=== PATIENT | female | born 1960 | race Caucasian/White ===

== ENCOUNTER → 2020-09-26 11:09 | Outpatient (CLI) | payer OTHER, SELFPAY ==
--- NOTE | ~2020-09-26 | DEXA_ITS ---
Bone Density Report Name: Mony Maloney Age: 60 Sex: Female Ethnicity: White Date of : 1960 Indication: postmenopausal; screening for osteoporosis; height loss; Referring Provider: Iza Phan Study: Bone densitometry was performed. Exam Date: September 26, 2020 Accession number: [id number] Bone Density: Region BMD T-score Z-score Classification AP Spine (L1-L4) 0.820 -2.1 -0.5 Osteopenia Femoral Neck (Left) 0.642 -1.9 -0.5 Osteopenia Total Hip (Left) 0.848 -0.8 0.3 Normal Femoral Neck (Right) 0.619 -2.1 -0.7 Osteopenia Total Hip (Right) 0.827 -0.9 0.1 Normal Total Hip Mean 0.838 -0.9 0.2 Normal World Health Organization criteria for BMD impression classify patients as: Normal (T-score at or above -1.0), Osteopenia (T-score between -1.0 and -2.5), or Osteoporosis (T-score at or below -2.5). 10-year Fracture Risk(1): Major Osteoporotic Fracture 9.6% Hip Fracture 1.3% Reported Risk Factors: [place] (), Neck BMD=0.619, BMI=31.1 (1) FRAX(R) Version 3.08. Fracture probability calculated for an untreated patient. Fracture probability may be lower if the patient has received treatment. Clinical Information Provided by Patient: Has used the following medications: Vitamin D, Calcium Patient maximum height was 65.5 Menopause Age: 49 No regular weight bearing exercise Does not regularly consume dairy products Drinks caffeinated beverages Onset of menses at age 11 Number of children 2 Impression: The patient has low bone mass, based on the Total Spine T-score. The patient has an estimated ten-year risk of hip fracture of 1.3% and an estimated ten-year risk of major fracture of 9.6%, based on the WHO FRAX algorithm. Discussion: BONE DENSITY IS LOW AT ONE OR MORE SKELETAL SITES. This patient's lowest T-score is low at one or more skeletal sites. It meets the World Health Organization's (WHO) criteria for ?low bone mass? (T-score between -1.0 and -2.5). The patient's 10-year risk of fracture as calculated by FRAX is less than the threshold where pharmacological therapy is recommended by the National Osteoporosis Foundation (NOF). However, all treatment decisions require clinical judgment and consideration of individual patient factors, including patient preferences, comorbidities, previous drug use, risk factors not captured in the FRAX model (e.g., frailty, falls, vitamin D deficiency, increased bone turnover, interval significant decline in bone density) and possible under or overestimation of fracture risk by FRAX. The patient should follow a healthful lifestyle (good nutrition with adequate calcium and vitamin D, and appropriate weight-bearing exercise). Follow-Up: Consider repeating this study in 2 to 3 years to reassess this patient's status, or sooner if there is some new clinical
== END ==
PROVIDERS: PCP Family Medicine; Visit Provider Family Medicine
DX: Z78.0 Asymptomatic menopausal state (principal); M85.88 Other specified disorders of bone density and structure, other site; M85.852 Other specified disorders of bone density and structure, left thigh; M85.851 Other specified disorders of bone density and structure, right thigh
CPT/HCPCS: 77080

== ENCOUNTER 2020-12-30 03:03 | Day surgery (SDC) | payer OTHER, SELFPAY ==
[2020-12-30 08:09] VITALS: BP 146/90; PULSE 55; RESP 16; TEMP 36.2; O2SAT 98; BMI 29.3
[2020-12-30] MEDS: LACTATED RINGERS 1,000 ML 150 ML IV CONT (08:21)
--- NOTE | 2020-12-30 08:36 | WPDANESEPPF ---
Anes - Initial Pre Proc Eval Procedure: Operation Date: 12/30/20 09:00 Proposed Procedures p Screening Colonoscopy - Eliezer Kolb MD Date/Time: 12/30/20 08:36 Surgeon: Eliezer Kolb MD Pre Op Diagnosis: neoplasm screening Patient Data Age: 60 Gender: F Height: 1.65 m Weight: 80 kg Last Vital Signs Temp 97.1 F L 12/30/20 08:09 Pulse 55 L 12/30/20 08:09 Resp 16 12/30/20 08:09 BP 146/90 H 12/30/20 08:09 Pulse Ox 98 12/30/20 08:09 Allergies Allergy/AdvReac Type Severity Reaction Status Date / Time codeine Allergy Unknown Nausea Verified 12/30/20 08:08 lisinopril Allergy Unknown cough and Verified 12/30/20 08:08 swelling Home Medications Medication Instructions Recorded Confirmed Type amlodipine 5 mg tablet 5 mg PO DAILY 05/23/20 12/30/20 History atorvastatin 40 mg tablet 40 mg PO DAILY 11/15/20 12/30/20 History trazodone 50 mg tablet 50 mg PO QHS PRN #60 tablet 11/15/20 12/30/20 Rx atenolol 50 mg tablet 50 mg PO DAILY #90 tablet 11/18/20 12/30/20 Rx atorvastatin 20 mg PO DAILY 12/20/20 12/30/20 History ezetimibe 10 mg PO DAILY 12/20/20 12/30/20 History hydrochlorothiazide 12.5 mg PO DAILY 12/20/20 12/30/20 History Patient hx anesthesia problems: none Family hx anesthesia problems: none Results Review: All pre-operative results and documents have been reviewed as part of the pre-operative evaluation. [facility] Past Medical History Medical History (Updated 12/30/20 @ 08:35 by Christopher Sofia MD) Essential (primary) hypertension Hyperlipidemia Thoracic aortic aneurysm Family History Family History Father Hypertension Family history of elevated blood lipids Acute myocardial infarction Family history of coronary artery disease Sibling Family history of aortic aneurysm Mother Family history of malignant neoplasm of breast in first degree relative Family history of malignant neoplasm of ovary Social History Social History Smoking packs per day: 1 Smoking cigarettes per day: 20.0 Years smoked: 30 Smoking pack-years: 30.00 Tobacco type: cigarettes Alcohol intake: current Drinks per week: 8 Alcohol use details: 2-3 drinks, 2-3 times weekly Substance use: never Substance use type: does not use Living arrangements: with family Additional living arrangements comments: lives with spouse Spiritual care concerns: No Anes - Eval Final PreProcedure Day of Procedure 12/30/20 08:36 Patient weight: overweight Heart: regular rate and rhythm Lungs: clear to auscultation Airway: Mallampati scale class II Neurological: alert and oriented Last oral intake: >/= 8 hours ASA classification: III Emergent: no Anesthetic plan: proceed Anesthesia type and monitoring: general GIVS and standard monitoring Results Review: All pre-operative results and documents have been reviewed as part of the pre-operative evaluation. Informed Consent: The patient's anesthetic plan and its attendant risks and benefits were discussed with the patient/family/POA. Questions were solicited and answers provided to the satisfaction of the patient/family/POA.
--- NOTE | 2020-12-30 08:40 | PM.HPGS ---
History of Present Illness History of Present Illness Consent: Risks, benefits, and alternatives have been discussed and questions answered. Patient agrees to proceed with procedure. Chief complaint: neoplasm screening Narrative: Mony Maloney is a 60 year old female with last colonoscopy 2010 Review of Systems Constitutional: Constitutional: Denies headache(s) and Denies weakness Eyes: Eyes: Denies blurry vision ENT: Reports Normal hearing present, Denies headache(s) and Denies neck pain Cardiovascular: Cardiovascular: Denies chest pain and Denies dyspnea Respiratory: Respiratory: Denies dyspnea Gastrointestinal: Gastrointestinal: Reports no additional gastrointestinal complaints Genitourinary: Genitourinary: Denies dysuria Musculoskeletal: Musculoskeletal: Denies neck pain Integumentary/Breasts: Skin/Breast: Denies dry skin Neurologic: Reports Normal hearing present, Denies headache(s) and Denies weakness Psychiatric: Psychiatric: Denies anxiety Endocrine: Endocrine: Denies change in body appearance Hematologic/Lymphatic: Hematologic/Lymphatic: Denies easy bleeding Allergic/Immunologic: Allergic/Immunologic: Denies urticaria [facility] Past Medical History Medical History (Updated 12/30/20 @ 08:40 by Eliezer Kolb MD) Colon cancer screening Essential (primary) hypertension Hyperlipidemia Thoracic aortic aneurysm Family History Family History Father Hypertension Family history of elevated blood lipids Acute myocardial infarction Family history of coronary artery disease Sibling Family history of aortic aneurysm Mother Family history of malignant neoplasm of breast in first degree relative Family history of malignant neoplasm of ovary Social History Social History Smoking packs per day: 1 Smoking cigarettes per day: 20.0 Years smoked: 30 Smoking pack-years: 30.00 Tobacco type: cigarettes Alcohol intake: current Drinks per week: 8 Alcohol use details: 2-3 drinks, 2-3 times weekly Substance use: never Substance use type: does not use Living arrangements: with family Additional living arrangements comments: lives with spouse Spiritual care concerns: No Meds Home Medications and Allergies Home Medications Medication Instructions Recorded Confirmed Type amlodipine 5 mg tablet 5 mg PO DAILY 05/23/20 12/30/20 History atorvastatin 40 mg tablet 40 mg PO DAILY 11/15/20 12/30/20 History trazodone 50 mg tablet 50 mg PO QHS PRN #60 tablet 11/15/20 12/30/20 Rx atenolol 50 mg tablet 50 mg PO DAILY #90 tablet 11/18/20 12/30/20 Rx atorvastatin 20 mg PO DAILY 12/20/20 12/30/20 History ezetimibe 10 mg PO DAILY 12/20/20 12/30/20 History hydrochlorothiazide 12.5 mg PO DAILY 12/20/20 12/30/20 History Allergies Allergy/AdvReac Type Severity Reaction Status Date / Time codeine Allergy Unknown Nausea Verified 12/30/20 08:08 lisinopril Allergy Unknown cough and Verified 12/30/20 08:08 swelling Vital Signs Vital Signs - 24 hr 12/30/20 08:09 Temperature 97.1 F L Pulse Rate 55 L Respiratory Rate 16 Blood Pressure 146/90 H Pulse Oximetry 98 Exam Const: General: comfortable and no acute distress HENMT: General nose exam: Normal nares present Eyes: General: appearance normal, both eyes and all related structures Neck: Neck: no JVD Resp: Auscultation: clear to auscultation bilaterally Cardio: Rate: regular rate Rhythm: regular rhythm GI: Inspection: non-distended GI Palp: Yes Soft to palpation Skin: General skin exam: normal color Neuro: General: gait normal Speech: normal speech Extrem: General: normal to inspection Psych: Mental Status: mental status grossly normal Assessment and Plan Assessment and plan (1) Colon cancer screening: Code(s): Z12.11 - Encounter for screening for malignant neop
[2020-12-30 09:02] VITALS: BP 94/50; PULSE 56; RESP 16; O2SAT 98
[2020-12-30 09:12] VITALS: BP 116/79; PULSE 48; RESP 16; O2SAT 99
[2020-12-30 09:21] VITALS: BP 130/79; PULSE 50; RESP 16; O2SAT 99
== END 2020-12-30 09:32 | disposition home or self-care (01) ==
PROVIDERS: PCP Family Medicine; Visit Provider Internal Medicine Gastroenterology
PROC: 0DJD8ZZ Inspection of Lower Intestinal Tract, Via Natural or Artificial Opening Endoscopic (ICD-10-PCS; CPT 45378; principal; 2020-12-30 09:00)
DX: Z12.11 Encounter for screening for malignant neoplasm of colon (principal); K57.30 Diverticulosis of large intestine without perforation or abscess without bleeding; K64.8 Other hemorrhoids; I10 Essential (primary) hypertension; E78.5 Hyperlipidemia, unspecified; I71.2 Thoracic aortic aneurysm, without rupture; F17.210 Nicotine dependence, cigarettes, uncomplicated
CPT/HCPCS: 45378; J2704; J7120

== ENCOUNTER 2024-04-23 13:23 | Outpatient (CLI) | payer MEDICARE, SELFPAY ==
--- NOTE | ~2024-04-23 | DEXA_ITS ---
Bone Density Report Name: HAYDEN RAMOS Age: 64 Sex: Female Ethnicity: White Date of : 1960 Indication: postmenopausal; screening for osteoporosis; Referring Provider: CLARK FIERRO Study: Bone densitometry was performed. Exam Date: April 23, 2024 Accession number: [id number] Bone Density: Region BMD T-score Z-score Classification AP Spine(L1-L4) 0.807 -2.2 -0.4 Osteopenia Femoral Neck (Left) 0.626 -2.0 -0.5 Osteopenia Total Hip (Left) 0.830 -0.9 0.3 Normal Femoral Neck (Right) 0.597 -2.3 -0.8 Osteopenia Total Hip (Right) 0.786 -1.3 -0.1 Osteopenia Total Hip Mean 0.808 -1.1 0.1 Osteopenia World Health Organization criteria for BMD impression classify patients as: Normal (T-score at or above -1.0), Osteopenia (T-score between -1.0 and -2.5), or Osteoporosis (T-score at or below -2.5). 10-year Fracture Risk(1): Major Osteoporotic Fracture 11% Hip Fracture 2.0% Reported Risk Factors: [place] (), Neck BMD=0.597, BMI=29.4 (1) FRAX(R) Version 3.08. Fracture probability calculated for an untreated patient. Fracture probability may be lower if the patient has received treatment. Clinical Information Provided by Patient: Has used the following medications: Vitamin D, Calcium Patient maximum height was 66 Menopause Age: 44 Does not regularly consume dairy products Drinks caffeinated beverages Onset of menses at age 11 Number of children 2 Impression: The patient has low bone mass, based on the Right Femoral Neck T-score. The patient has an estimated ten-year risk of hip fracture of 2% and an estimated ten-year risk of major fracture of 11%, based on the WHO FRAX algorithm. Discussion: BONE DENSITY IS LOW AT ONE OR MORE SKELETAL SITES. This patient's lowest T-score is low at one or more skeletal sites. It meets the World Health Organization's (WHO) criteria for ?low bone mass? (T-score between -1.0 and -2.5). The patient's 10-year risk of fracture as calculated by FRAX is less than the threshold where pharmacological therapy is recommended by the National Osteoporosis Foundation (NOF). However, all treatment decisions require clinical judgment and consideration of individual patient factors, including patient preferences, comorbidities, previous drug use, risk factors not captured in the FRAX model (e.g., frailty, falls, vitamin D deficiency, increased bone turnover, interval significant decline in bone density) and possible under or overestimation of fracture risk by FRAX. The patient should follow a healthful lifestyle (good nutrition with adequate calcium and vitamin D, and appropriate weight-bearing exercise). Follow-Up: Consider repeating this study in 2 to 3 years to reassess this patient's status, or sooner if there is some new clinical indication. Reported by: WERNER on 04/23/2024 1:52:00 PM. Reviewed, dictated and finalized at location [facility]
--- OUTSIDE RECORDS SUMMARY | 2024-04-23 13:30 | XMS_ITS | Encounter Summary ---
Author Organization [facility] Address [address] [place] [address] Care Team Providers Care Assembler [employer] Name Role Phone Unavailable Primary Care Provider Unavailabl e Encounter Details Date Type Department Care Team (Late st Contact Info) Description 06/18/2023 Lab Requisition [facility] [address] [place] [address] Ailyn Ortega DO [address] [facility] [address] [place] [address] Social History Tobacco Use Types Packs/Day Years Used Date Smoking Tobacco: Never Assessed Sex and Gender Information Value Date Recorded Sex Assigned at Not on file Gender Identity Not on file Sexual Orientation Not on file documented as of this encounter Plan of Treatment Not on file documented as of this encounter Procedures Procedure Name Priority Date/Time Associated Diagnosis Comments DERMATOPATHOLOGY Routine 06/18/2023 2:26 PM CDT documented in this encounter Results * DERMATOPATHOLOGY (06/18/2023 2:26 PM CDT) Case Report Dermatopathology Report Case: [id number] Authorizing Provider: Ailyn Ortega DO Collected: 06/18/2023 02:26 PM Ordering Location: [facility] - Received: 06/19/2023 12:37 PM DermPath Lab Pathologist: Ivone Alcantar MD Specimen: Skin, left anterior leg 1:07 PM CDT DERMATOPATHOLOGY LABORATORY Final Diagnosis Specimen A. SKIN, left anterior leg: LICHEN PLANUS-LIKE KERATOSIS (BENIGN LICHENOID KERATOSIS) (L82.1) 1:07 PM CDT DERMATOPATHOLOGY LABORATORY Clinical History R/o NMSC 04/11/202 4 1:07 PM CDT DERMATOPATHOLOGY LABORATORY Gross Description Specimen A: Received is one formalin filled container labeled with the patient's name and designated left anterior leg. The specimen consists of a shave biopsy measuring 8x5x1 mm. Jar 0. 1:07 PM CDT DERMATOPATHOLOGY LABORATORY Microscopic Description Specimen A. SKIN, left anterior leg: The epidermis is mildly acanthotic. There is a lichenoid infiltrate with vacuolar changes of basilar keratinocytes and scattered necrotic keratinocytes. 1:07 PM CDT DERMATOPATHOLOGY LABORATORY Disclaimer An external and internal positive and negative controls are appropriate for the histochemical, immunohistochemical and immunofluorescence stain(s) in this case (if any), except where stated explicitly. The performance characteristics of the stain(s) cited in this report were developed and its performance characteristic determined by the Dermatopathology Laboratory at [facility], directed by Dr. Ha Reagan. These tests need not be, and therefore are not, approved by the [place] Food and Drug Administration. The tests are used for clinical purposes. Billing Codes Specimen Charges Stain Charges 10020 1 1:07 PM CDT DERMATOPATHOLOGY LABORATORY Embedded Images 1:07 PM CDT DERMATOPATHOLOGY LABORATORY Pathology/Cytolo gy TISSUE SPECIMEN FROM SKIN / Unknown 06/18/2023 2:26 PM CDT 06/19/2023 12:37 PM CDT Ailyn Ortega DO LAB - PATHOLOGY/C YTOLOGY ORDERABLES DERMATOPATHOLOGY LABORATORY [facility] - Department of Dermatology [address], [address] [phone] documented in this encounter Visit Diagnoses Not on filedocumented in this encounter
--- OUTSIDE RECORDS SUMMARY | 2024-04-23 13:31 | XMS_ITS | Encounter Summary ---
Author Organization [facility] Address [address] [place] [address] Phone Care Team Providers Care Credentialer Name Role Phone Iza Phan DO Primary Care Provider [phone] Encounter Details Date Type Department Care Team (Latest Contact Info) Description 11/08/2021 Orders Only [facility] Scanning, Provider Social History Tobacco Use Types Packs/Day Years Used Date Smoking Tobacco: Former Smokeless Tobacco: Never Alcohol Use Standard Drinks/Week Comments Yes 0 (1 standard drink = 0.6 oz pur e alcohol) Comments No Sex and Gender Information Value Date Recorded Sex Assigned at Not on file Legal Sex Female 7:08 AM [employer] Gender Identity Female 05/16/2020 7:57 PM [employer] Sexual Orientation Straight 05/16/2020 7: 57 PM [employer] documented as of this encounter Progress Notes * Yvonne Bishop RN - 11/08/2021 11:59 PM CDT Labs from pcp. Pt seen today. documented in this encounter Plan of Treatment Not on file documented as of this encounter Procedures Procedure Name Priority Date/Time Associated Diagnosis Comments SCAN - LABS 11/08/2021 documented in this encounter Results * SCAN - LABS (11/08/2021) us Provider Scanning Final Result documented in this encounter Visit Diagnoses Not on filedocumented in this encounter Care Teams Credentialer Relationship Specialty Start Date End Date Iza Phan DO PCP - General Family Medicine 02/11/20 documented as of this encounter
--- OUTSIDE RECORDS SUMMARY | 2024-04-23 13:31 | XMS_ITS | Continuity of Care Document ---
Author Organization [facility] Address [address] [place] [address] Phone Care Team Providers Care Catalogue Compiler Name Role Phone Minnie Blackburn MD Unavailable Unavailable Allergies, Adverse Reactions, Alerts Substance Reaction Status Criticality lisinopril Active No Information codeine Active No Information Medications Medication Instructions Dosage Effective Dates (start - stop) Status Comments amoxicillin 875 mg tablet take 1 tablet by oral route every 12 hours 875 MG - Active multivitamin tablet - Active atorvastatin 20 mg tablet take 1 tablet by oral route every day 20 MG - Active atenolol 50 mg tablet take 1 tablet by oral route every day 50 MG - Active CITRACAL-D3 (unknown strength) Not Available - Active hydrochlorothiazide 12.5 mg tablet take 1 tablet by oral route every day 12.5 MG - Active ezetimibe 10 mg tablet take 1 tablet by oral route every day 10 MG - Active Procedures Procedure Date RAPID STREP OFFICE/OUTPATIENT VISIT, NEW OFFICE/OUTPATIENT VISIT, EST OFFICE/OUTPATIENT VISIT, EST OFFICE/OUTPATIENT VISIT, EST OFFICE/OUTPATIENT VISIT, EST OFFICE/OUTPATIENT VISIT, EST Advance Directives Directive Yes / No Effective Date File Name Other Directive No N/A N/A WARNING:The information contained in this section is historical and is provided for information only and does not constitute a legal document or any assurance that the information is still accurate. Please verify the information with the hwang of the legal document before using it for clinical purposes. Encounters Encounter Description Practice Location Reason(s) For Visit Diagnoses Date Provider Providers Copied on Encounter OFFICE/OUTPAT IENT VISIT, [facility], [address] [place] [address], [place], tel: [phone] [place] SORE THROAT (chief complaint) Pain in throatOther acute sinusitis 3 Blackburn Minnie. [address] [place] [address], [place], . tel: [phone] OFFICE/OUTPAT IENT VISIT, [facility], [address] [place] [address], [place], [place] tel: [phone] [place] UTI (chief complaint) DysuriaUrinary frequencyAcute cystitis with hematuria 3 Aren Mathews. [address] [place] [address], [place], [place]. tel: [phone] OFFICE/OUTPAT IENT VISIT, [facility], [address] [place] [address], [place], tel: [phone] [place] Sinus symptoms (acute) (chief complaint) Acute maxillary sinusitis, unspecified [phone] Trung Kiara. [address] [place] [address], [place], . tel: [phone] OFFICE/OUTPAT IENT VISIT, [facility], [address] [place] [address], [place], tel: [phone] [place] Sinus symptoms (acute) (chief complaint) Acute maxillary sinusitis, unspecified 201 9 Blackburn Gulam. [address] [place] [address], [place], . tel: [phone] OFFICE/OUTPAT IENT VISIT, [facility], [address] [place] [address], [place], [place] tel: [phone] [place] Sinus symptoms (acute) (chief complaint) Acute sinus infection 3-201 5 Trung Kiara. [address] [place] [address], [place], . tel: [phone] OFFICE/OUTPAT IENT VISIT, [facility], [address] [place] [address], [address], tel:[phone] [place] Sinus symptoms (acute) (chief complaint) Acute sinus infection 4 Malcom Beaver. [address] [place] [address], [address], . tel: [phone] Family History Family Member Type Diagnosis Age At Onset Mother Problem (finding) malignant neoplasm of o vary Father Problem (finding) alzheimer's disease Father Problem (finding) Heart disease Payers Payer name Insurance type Covered green party ID Authoriza tion(s) No Information Social History Type Description Quantity Date Captured Comments Alcohol Use Details beer Caffeine Use Details coffee Tobacco Use Status No Information Smoking Status Former smoker Non-Smoking Tobacco Use Details : No Details Available : No Details Available Sex Female Vital Signs Date / Time: Height Weight BMI Pulse Rate Blood Pressure Temperature Respiratory Rate Body Surface Area Head Circumference Head Circ. Percentile Wt./[place]. Percentile BMI percentile Pulse Ox Inhaled Ox 10:48 AM 65.00 in 79.651 kg (175.60 lbs) 29.2 2 kg/m eter (2) 65 /min 132/78 mm[Hg] 98.70 F 16 /min 97 % 21 % Chief Complaint And Reason For Visit From encounter dated 02/25/2023 10:30'. SORE THROAT (chief complaint). Description: Onset: 2 Days. The severity of the problem is moderate.The problem has worsened. Symptoms are associated with exposure to strep. Associated symptoms include cough, fatigue, nasal congestion, pharyngitis and postnasal drainage. Pertinent negatives includechills/rigors, dyspnea, facial pain, fever, headache, hemoptysis, myalgia, otalgia, rash, rhinitis,sinus pressure, sputum, tooth pain or wheezing. Additional information: COVID POSITIVE ON THANKSVII. Reason For Referral Reason For Referral No Information Plan Of Treatment Date Type Action Status Goal HPV. Due on due Goal FOBT. Due on due Goal Depression screening. Due on due Goal Mammogram. Due on due Goal Lipid panel. Due on due Goal Pap/HPV testing. Due on due Goal Unhealthy drug u se screening. Due on due Goal Zoster vaccine. Due on due Goal Hepatitis C screening. Due o n due Goal Tdap. Due on due Goal Td vaccine. Due on due Goal Zoster vaccine (). Due on due Goal Colonoscopy. Due on due Goal FIT. Due on due Goal Influenza vaccine. Due on due Goal Sigmoidoscopy. Due on due Goal FIT-DNA. Due on due Goal CT-Colonography. Due on due Goal Tobacco cessation counseling completed Goal Depression screening. Due on due Goal Pap/HPV testing. Due on due Goal FOBT. Due on due Goal Influenza vaccine. Due on due Goal Zoster vaccine. Due on due Goal Colonoscopy. Due on due Goal Lipid panel. Due on due Goal Mammogram. Due on due Goal Td vaccine. Due on due Goal Tdap. Due on due Goal Sigmoidoscopy. Due on due Goal CT-Colonography. Due on due Goal FIT. Due on due Goal FIT-DNA. Due on due Goal Hepatitis C screening. Due o n due Goal HPV. Due on due Goal Unhealthy drug u se screening. Due on due Goal Zoster vaccine (). Due on due Goal FOBT. Due on due Goal Influenza vaccine. Due on due Goal Zoster vaccine. Due on due Goal Colonoscopy. Due on due Goal Lipid panel. Due on 020 due Goal Mammogram. Due on 0 due Goal Td vaccine. Due on 20 due Goal Tdap. Due on due Goal Sigmoidoscopy. Due on due Goal Pap/HPV testing. Due on due Goal Depression screening. Due on due Patient Education Urinary Tract Infection in Women: Care Instructions completed Patient Education Sinusitis: After Your V isit completed History Of Present Illness Encounter Date Complaint History Of Prese nt Illness SORE THROAT Onset: 2 Days. T he severity of the problem is moderate. The problem has worsened. Symptoms are associated with exposure to strep. Associated symptoms include cough, fatigue, nasal congestion, pharyngitis and postnasal drainage. Pertinent negatives include chills/rigors, dyspnea, facial pain, fever, headache, hemoptysis, myalgia, otalgia, rash, rhinitis, sinus pressure, sputum, tooth pain or wheezing. Additional information: COVID POSITIVE ON THANKSGIVIING. Comments: EXPOSE D TO WITH STREP INF UTI Onset: 1 Day. Th e severity of the problem is mild. The problem has worsened. Presenting/Initial symptoms include burning, dysuria, frequency, hematuria and urgency. Symptoms are relieved by OTC analgesics. Comments: (Fabio victor is a 62-year-old female with medical history of hypertension hyperlipidemia presents to the clinic with complaints of dysuria, frequency, and urgency for 1 day. Aggravating factors urination, relieving factors Azo, treatments tried again on ibuprofen. Primary care provider is Iza Rowan. She denies chest pain, shortness of breath, fever, vomiting, flank pain, vaginal discharge, vaginal odor, STI concerns, or any other acute symptoms today. She indicates that generally when she has urinary tract infection her symptoms are similar to this and usually occur quickly.) Sinus symptoms (acute) Onset: 2 Weeks. Pertinent/initial symptoms include facial pain, facial pressure, sinus congestion, sinus pain and sinus pressure. Associated symptoms include cough, nasal drainage and postnasal drainage. Pertinent negatives include fever or tooth pain. Sinus symptoms (acute) (comments ) The patient reports being treated for sinus infection with Doxycycline and Prednisone. She started to feel a little bit better and then worse again. She has been off antibiotics for about 2 days. She denies any fever and has been checking regularly to make sure she does not have a temp. She gets sinus infections a few times a year. She has been taking Mucinex. Sinus symptoms (acute) Onset: 6 Days. The severity of the problem is moderate. The problem has worsened. The symptoms are constant. Symptoms are associated with recurrent sinus infections. Aggravating factors include allergens. Symptoms are relieved by decongestants, nasal saline spray, nasal steroids and OTC analgesics. Associated symptoms include cough, headache, nasal drainage, postnasal drainage, sinus pressure, sore throat, tooth pain and tooth sensitivity. Pertinent negatives include fever. Additional information: bilateral earache. Sinus symptoms (acute) Onset: 4 Days. The severity of the problem is moderate. Both sides are affected. Pertinent/initial symptoms include sinus pain and sinus pressure. Symptoms are associated with tobacco use. Denies aggravating factors. Denies relieving factors. Associated symptoms include cough, headache, postnasal drainage, sinus pressure and sore throat. Pertinent negatives include fever or nasal drainage. Additional information: (Leaving for vacation in a few days and does not want to be out of town and symptoms get worse). Sinus symptoms (acute) Onset: 5 Days. The severity of the problem is moderate. Pain Scale: 6/10. The problem has worsened. The symptoms are constant. Both sides are affected. Pertinent/initial symptoms include facial pain, facial pressure, sinus congestion, sinus pain, sinus pressure and throbbing pain. Symptoms are associated with tobacco use. Associated symptoms include cough, headache, nasal drainage, postnasal drainage and sinus pressure. Pertinent negatives include fever or sore throat. Additional information: has been taking Mucinex for 5 days but is not getting any better. Functional Status Date Functional Assessmen t No Information Instructions Date Instruction Additional Infor alysha FINISH AMOXIL, NARESH NUE SYMPTOMATIC TREATMENTS DIRECTED Related to Other acute sinusitis Take antibiotic as d irected, take all the medication even if improved. Drink plenty of fluids especially water, wipe front to back, avoid douching, empty the bladder before and immediately following sexual intercourse, and avoid tight fitting clothing. Avoid irritants such as scented feminine products, scented pads or tampons, and scented bath soaps. Monitor for worsening signs and symptoms, return to the clinic or present to the emergency room should your condition worsen. Related to Acute cystitis with hematuria Finish all antibiotics as prescr ibed. Related to Acute maxillary sinusitis, unspecified Sinus rinses Related to Acute maxillary sinusitis, unspecified Increase fluids. Rest. Related t o Acute maxillary sinusitis, unspecified Mucinex DM + Sudafed for sinus relief, mucous, and cough Related to Acute maxillary sinusitis, unspecified FINISH ANTIBIOTICS- DIRECTED R elated to Acute maxillary sinusitis, unspecified Finish all antibiotics as prescr ibed. Related to Acute sinus infection Patient instructed o n use of saline sprays. Related to Acute sinus infection Increase fluids. Related to Acut e sinus infection Instructions given f or sinus irrigation. Related to Acute sinus infection RTC if symptoms not better in 1 week Related to Acute sinus infection continue using mucinex Related t o Acute sinus infection antibiotics as discussed Related to Acute sinus infection Patient instructed o n use of saline sprays. Related to Acute sinus infection Assessments Type Assessment Date assessment Pain in throat assessment Other acute sinusitis Mental Status Date Cognitive Assessment Orientation - Elsa ed to time, place, person, situation. Patient Care Teams Name Effective Dates (start - stop) Status Members No Information
--- OUTSIDE RECORDS SUMMARY | 2024-04-23 13:31 | XMS_ITS | Clinical Summary ---
Author Organization [facility] Address [address] [place] [address] Care Team Providers Care Photographic Reproduction Technician Name Role Phone Unavailable Primary Care Provider Unavailabl e Source Comments [facility],non-owned Affiliates and Associated Physician Practices is amultiple site organization consisting of ambulatory clinics and hospital sitesin [place], [place] and [place]. This disclosure is being madepursuant to the Care Everywhere program and may not contain all information available regarding this patient. Last updated 17.[facility] [employer] Social History Tobacco Use Types Packs/Day Years Used Date Smoking Tobacco: Never Assessed Sex and Gender Information Value Date Recorded Sex Assigned at Not on file Gender Identity Not on file Sexual Orientation Not on file Plan of Treatment Health Maintenance Due Date Last Done Comments BONE DENSITY TESTING 1959 COLOGUARD (AGES 45-75) - COL ON CA SCREENING 1959 COLON MONITORING 1959 COLONOSCOPY - COLON CA SCREENING 1959 CT COLONOGRAPHY - COLON CA SCREENING 1959 Colorectal Cancer Screening 1959 FIT - COLON CA SCREENING 1959 FLEX SIG - COLON CA SCREENING 1959 LIPID TESTING 1959 MAMMOGRAM 1959 PAP SMEAR 1959 HIV SCREENING 1974 HEPATITIS C SCREENING 03/09/1977 DTAP/TDAP/TD VACCINES (1 - Tdap) 1978 PNEUMOCOCCAL VACCINE 50+ (1 of 1 - PCV) 2009 ZOSTER VACCINE (1 of 2) 2009 COVID-19 VACCINE ( - 2023-2 5 season) 2023 INFLUENZA VACCINE (#1) 2023 DEPRESSION SCREENING 03/11/2024 Respiratory Syncytial Virus (RSV) Vaccine Pt: or over 60 yrs (1 - 1-dose 75+ series) 2034 HEPATITIS B VACCINE Aged Out No longe r eligible based on patient's age to complete this topic HIB VACCINE Aged Out No longer eligi ble based on patient's age to complete this topic HPV VACCINE Aged Out No longer eligi ble based on patient's age to complete this topic MENINGOCOCCAL (Group B) VACCINE Aged Out No longer eligible based on patient's age to complete this topic MENINGOCOCCAL VACCINE Aged Out No art amelia eligible based on patient's age to complete this topic
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
--- OUTSIDE RECORDS SUMMARY | 2024-04-23 13:31 | XMS_ITS | Clinical Summary ---
Author Organization [facility] Address [address] [place] [address] Phone Care Team Providers Care Plate Put In Worker Name Role Phone Iza Phan DO Primary Care Provider [phone] Allergies Active Allergy Reactions Criticality Noted Date Comments Amlodipine Swelling Medium 07/11/2020 Codeine Nausea only,Vomiting Reaction: Nausea, Vomiting, Lisinopril Swelling Medium 07/11/2020 Medications hydroCHLOROthia zide (MICROZIDE) 12.5 mg capsule TAKE 1 CAPSULE BY MOUTH DAILY 90 capsule 3 11/30/2022 Active atenoloL (TENORMIN) 50 mg tablet TAKE 1 TABLET BY MOUTH DAILY 90 tablet 3 09/25/2023 Active atorvastatin (LIPITOR) 20 mg tablet TAKE 1 TABLET BY MOUTH ONCE DAILY 90 tablet 3 09/25/2023 Active ezetimibe (ZETIA) 10 mg tablet TAKE 1 TABLET BY MOUTH DAILY 90 tablet 3 09/25/2023 Active Active Problems Problem Noted Date Diagnosed Date Aortic dilatation 11/14/2020 Essential hypertension 05/20/2020 Hypercholesterolemia 05/20/2020 Coronary artery calcification 05/20/2020 Resolved Problems Problem Noted Date Diagnosed Date Resolved Date Thoracic aortic aneurysm 05/18/2020 Family History Medical History Relation Name Comments Heart disease Father Heart disease; Breast cancer Mother Cancer, breast ; Ovarian cancer Mother Ovarian cance r; Hypertension Sister Hypertension; Relation Name Status Comments Father Mother Sister Social History Tobacco Use Types Packs/Day Years Used Date Smoking Tobacco: Former Smokeless Tobacco: Never Alcohol Use Standard Drinks/Week Comments Yes 0 (1 standard drink = 0.6 oz pur e alcohol) Personal Safety Answer Date Recorded Getting School Help Needed Not on file 05/24 Comments No Sex and Gender Information Value Date Recorded Sex Assigned at Not on file Legal Sex Female 7:08 AM ENGAGEMENT QUALITY CONSULTANT Gender Identity Female 05/16/2020 7:57 PM ENGAGEMENT QUALITY CONSULTANT Sexual Orientation Straight 05/16/2020 7: 57 PM ENGAGEMENT QUALITY CONSULTANT Obstetrics History Last Filed Vital Signs Vital Sign Reading Time Taken Comments Blood Pressure 130/80 11/21/2022 9:52 AM CDT Pulse 60 11/21/2022 9:52 AM CDT Temperature 36.3 C (97.4 F) 05/20/2020 8:57 AM ENGAGEMENT QUALITY CONSULTANT Respiratory Rate - - Oxygen Saturation 98% 11/21/2022 9:52 AM CDT Inhaled Oxygen Concentration - - Weight 81.3 kg (179 lb 3.2 oz) 11/21/2022 9:52 A M CDT Height 165.1 cm (5' 5 ) 11/21/2022 9:52 AM CDT Body Mass Index 29.82 11/21/2022 9:52 AM CDT Plan of Treatment Health Maintenance Due Date Last Done Comments Breast Cancer Screening-Mammogram 1960 Colon Cancer Screening-Colonoscopy 1960 Depression Screening 1959 Fall Risk Assessment 1960 Hepatitis C Screening 1960 Osteoporosis Screening-Bone Density Scan 1959 DTaP/Tdap/Td Vaccine (1 - Tdap) 1970 Hepatitis B Screening 1977 Cervical Cancer Screening 10/15/20142013, 10/15/2013, 09/30/2012, Additional history exists Zoster Vaccine (2 of 2) 01/01/2020 11/06/2019 Influenza Vaccine (#1) 2023 0, 12/25/2018, 02/24/2018 Pneumococcal vaccine 65+ (1 of 1 - PCV) 2024 Well Visit 65+ 2024 10/02/2016 Procedures Procedure Name Priority Date/Time Associated Diagnosis Comments THINPREP IMAGING PAP AND HPV MRNA E6/E7 REFLEX HPV 16,18/45 Routine 10/15/2013 12:00 AM CDT from Last 3 Months or Most Recently Relevant to Health Maintenance Results * ThinPrep Imaging Pap and HPV mRNA E6/E7 Reflex HPV 16,18/45 (10/15/2013 12:00 AM CDT) Human papillomavirus RNA, High Risk E6/E7 Not Detected Not Detected [facility] HISTORICAL RESULTS Comment: This test was performed using the APTIMA HPV Assay ([employer] This assay detects E6/E7 viral messenger RNA (mRNA) from 14 high-risk HPV types (16,18,31,33,35,39,45,51,52,56,58,59,66,68). Test performed at [facility] [address] Director: ERINN KAY MD 10/15/2013 us Rosales Jordan MD LAB CYTOLOGY ORDERABLES Final Re sult [facility] HISTORICAL RESULTS from Last 3 Months or Most Recently Relevant to Health Maintenance Insurance [facility] CHOICE PLUS Member Subscriber Plan / Payer (Ef fective 2020-Present) Name:Mony Maloney Member ID:Not on file Relation to Subscriber:Not on file Subscriber ID:Not on file Payer ID:[id number] (NAIC) Group ID:Not on file Type:[facility] HMO/PPO Address: [place] [phone] [facility] CHOICE PLUS CHOICE PLUS [facility] CHOICE PLUS Member Subscriber Plan / Payer (Ef fective 2021-Present) Name:Jessica Maloneysly Alvarez Relation to Subscriber:Spouse Name:PARIS MALONEY Date of :1959 (Home) Address: [address] [place] [address] Payer ID:[id number] (NAIC) Type:[facility] HMO/PPO Address: [place] [phone] Care Teams Plate Put In Worker Relationship Specialty Start Date End Date Iza Phan DO PCP - General Family Medicine 02/11/20
--- OUTSIDE RECORDS SUMMARY | 2024-04-23 13:31 | XMS_ITS | Referral Summary ---
Author Organization [facility] Address [address] [facility] [address] Care Team Providers Care Mixed Livestock Farmer Name Role Phone Unavailable Primary Care Provider Unavailabl e Source Comments [facility],non-owned Affiliates and Associated Physician Practices is amultiple site organization consisting of ambulatory clinics and hospital sitesin [place], [place], [place] and [place]. This disclosure is being madepursuant to the Care Everywhere program and may not contain all information available regarding this patient. Last updated 17.[facility] Social History Tobacco Use Types Packs/Day Years Used Date Smoking Tobacco: Never Assessed Sex and Gender Information Value Date Recorded Sex Assigned at Not on file Gender Identity Not on file Sexual Orientation Not on file Plan of Treatment Not on file
--- OUTSIDE RECORDS SUMMARY | 2024-04-23 13:31 | XMS_ITS | Patient Health Summary ---
Author Organization [facility] Address [address] [place] [address] Care Team Providers Care Senior Compliance Analyst Name Role Phone Unavailable Primary Care Provider Unavailabl e Note from [facility],non-owned Affiliates and Associated Physician Practices is amultiple site organization consisting of ambulatory clinics and hospital sitesin [place], [place], [place] and [place]. This disclosure is being madepursuant to the Care Everywhere program and may not contain all information available regarding this patient. Last updated 17.[facility] Social History Tobacco Use Types Packs/Day Years Used Date Smoking Tobacco: Never Assessed Sex and Gender Information Value Date Recorded Sex Assigned at Not on file Gender Identity Not on file Sexual Orientation Not on file Procedures * DERMATOPATHOLOGY(Performed 06/18/2023) * DERMATOPATHOLOGY(Performed 04/18/2022) * DERMATOPATHOLOGY(Performed 02/22/2022) Results * DERMATOPATHOLOGY (06/18/2023 2:26 PM CDT) Only the most recent of3 resultswithin the time period is included. Case Report Dermatopathology Report Case: [id number] Authorizing Provider: Ailyn Ortega DO Collected: 06/18/2023 02:26 PM Ordering Location: [facility] - Received: 06/19/2023 12:37 PM DermPath Lab Pathologist: Ivone Alcantar MD Specimen: Skin, left anterior leg 4 1:07 PM CDT DERMATOPATHOLOGY LABORATORY Final Diagnosis Specimen A. SKIN, left anterior leg: LICHEN PLANUS-LIKE KERATOSIS (BENIGN LICHENOID KERATOSIS) (L82.1) 4 1:07 PM CDT DERMATOPATHOLOGY LABORATORY Clinical History R/o NMSC 1:07 PM CDT DERMATOPATHOLOGY LABORATORY Gross Description [...] characteristic determined by the Dermatopathology Laboratory at [facility], directed by Dr. Ha Reagan. These tests need not be, and therefore are not, approved by the [place] Food and Drug Administration. The tests are used for clinical purposes. Billing Codes Specimen Charges Stain Charges 40875 1 4 1:07 PM CDT DERMATOPATHOLOGY LABORATORY Embedded Images 1:07 PM CDT DERMATOPATHOLOGY LABORATORY Pathology/Cytolo gy TISSUE SPECIMEN FROM SKIN / Unknown 06/18/2023 2:26 PM CDT 06/19/2023 12:37 PM CDT Ailyn Ortega DO LAB - PATHOLOGY/C YTOLOGY ORDERABLES DERMATOPATHOLOGY LABORATORY [facility] - Department of Dermatology [address], [address] [phone]
--- OUTSIDE RECORDS SUMMARY | 2024-04-23 13:31 | XMS_ITS | Referral Summary ---
Author Organization [facility] Address [address] [place] [address] Phone Care Team Providers Care Java Engineer Name Role Phone Iza Phan DO Primary Care Provider [phone]- [phone] Allergies Active Allergy Reactions Criticality Noted Date [...] Date Resolved Date Thoracic aortic aneurysm 05/18/2020 Social History Tobacco Use Types Packs/Day Years [...] on file Legal Sex Female 7:08 AM SUPERVISOR CONTINUOUS WELD PIPE MILL Gender Identity Female 05/16/2020 7:57 PM SUPERVISOR CONTINUOUS WELD PIPE MILL Sexual Orientation Straight 05/16/2020 7: 57 PM SUPERVISOR CONTINUOUS WELD PIPE MILL Last Filed Vital Signs Vital Sign Reading Time Taken Comments Blood Pressure 130/80 11/21/2022 9:52 AM CDT Pulse 60 11/21/2022 9:52 AM CDT Temperature 36.3 C (97.4 F) 05/20/2020 8:57 AM SUPERVISOR CONTINUOUS WELD PIPE MILL Respiratory Rate - - Oxygen Saturation 98% 11/21/2022 9:52 AM CDT Inhaled Oxygen Concentration - - Weight 81.3 kg (179 lb 3.2 oz) 11/21/2022 9:52 A M CDT Height 165.1 cm (5' 5 ) 11/21/2022 9:52 AM CDT Body Mass Index 29.82 11/21/2022 9:52 AM CDT Plan of Treatment Not on file Procedures Procedure Name Priority Date/Time Associated Diagnosis [...] was performed using the APTIMA HPV Assay ([employer] This assay detects E6/E7 viral messenger RNA (mRNA) from 14 high-risk HPV types (16,18,31,33,35,39,45,51,52,56,58,59,66,68). Test performed at [facility] [address] Director: ERINN KAY MD 10/15/2013 Rosales Jordan MD LAB CYTOLOGY ORDERABLES Final Re sult [facility] HISTORICAL RESULTS from Last 3 Months or Most Recently Relevant to Health Maintenance Insurance [facility] CHOICE PLUS [facility] CHOICE PLUS CHOICE PLUS CHOICE PLUS Care Teams Java Engineer Relationship Specialty Start Date End Date Iza Phan DO PCP - General Family Medicine 02/11/20
--- OUTSIDE RECORDS SUMMARY | 2024-04-23 13:31 | XMS_ITS | Encounter Summary ---
Author Organization [facility] Address [address] [place] [address] Phone Care Team Providers Care Statement Request Clerk Name Role Phone Iza Phan DO Primary Care Provider +1- [phone] Encounter Details Date Type Department Care Team (Latest Contact Info) Description 05/03/2020 Orders Only [facility] Scanning, Provider Social History Tobacco Use Types Packs/Day Years Used Date Smoking Tobacco: Former Smokeless Tobacco: Never Alcohol Use Standard Drinks/Week Comments Yes 0 (1 standard drink = 0.6 oz pur e alcohol) Comments No Sex and Gender Information Value Date Recorded Sex Assigned at Not on file Legal Sex Female 7:08 AM OPERATOR BEARER SYSTEMS Gender Identity Female 05/16/2020 7:57 PM OPERATOR BEARER SYSTEMS Sexual Orientation Straight 05/16/2020 7: 57 PM OPERATOR BEARER SYSTEMS documented as of this encounter Plan of Treatment Not on file documented as of this encounter Procedures Procedure Name Priority Date/Time Associated Diagnosis Comments SCAN - LABS 05/03/2020 documented in this encounter Results * SCAN - LABS (05/03/2020) us Provider Scanning Final Result documented in this encounter Visit Diagnoses Not on filedocumented in this encounter Care Teams Statement Request Clerk Relationship Specialty Start Date End Date Iza Phan DO PCP - General Family Medicine 02/11/20 documented as of this encounter
== END 2024-04-23 13:24 | disposition home or self-care (01) ==
LOC: ANHIMG 13:24
PROVIDERS: PCP Family Medicine; Visit Provider Family Medicine
DX: M85.88 Other specified disorders of bone density and structure, other site (principal); M85.852 Other specified disorders of bone density and structure, left thigh; M85.851 Other specified disorders of bone density and structure, right thigh
CPT/HCPCS: 77080

== ENCOUNTER 2024-06-11 09:03 | Outpatient (CLI) | payer MEDICARE, SELFPAY ==
--- OUTSIDE RECORDS SUMMARY | 2024-06-11 09:20 | XMS_ITS | Clinical Summary ---
Author Organization [facility] Address [address] [place] [address] Care Team Providers Care Marketing And Public Relations Manager Name Role Phone Unavailable Primary Care Provider Unavailabl e Source Comments [facility],non-owned Affiliates and Associated Physician Practices is amultiple site organization consisting of ambulatory clinics and hospital sitesin [place], [place], [place] and [place]. This disclosure is being madepursuant to the Care Everywhere program and may not contain all information available regarding this patient. Last updated 17.[facility] [employer] Social History Tobacco Use Types Packs/Day Years [...] to complete this topic MENINGOCOCCAL (Group B) VACC INE SHARED DECISION-MAKING Aged Out No longer eligibl e based on patient's age to complete this topic MENINGOCOCCAL GROUPS A/C/Y/W VACCINE Aged Out No longer eligible b ased on patient's age to complete this topic
--- OUTSIDE RECORDS SUMMARY | 2024-06-11 09:20 | XMS_ITS | Encounter Summary ---
Author Organization [facility] [facility] Address [address] [place] [address] Phone Care Team Providers Care Procurement Buyer Name Role Phone Iza Phan DO Primary Care Provider +1- [phone] Encounter Details Date Type Department Care Team [...] on file Legal Sex Female 7:08 AM RADIO MECHANIC Gender Identity Female 05/16/2020 7:57 PM RADIO MECHANIC Sexual Orientation Straight 05/16/2020 7: 57 PM RADIO MECHANIC documented as of this encounter Progress Notes * Yvonne Bishop RN - 11/08/2021 11:59 PM CDT Labs from pcp. Pt seen today. documented in this encounter Plan of Treatment Upcoming Encounters Date Type Department Care Team (Latest Contact Info) Description 07/13/2024 8:30 AM CDT Hospital Encounter [facility] [address] [place] [address] Chris, Motorcycle Racer, [address] [place] [address] Paroxysmal atrial fibrillation (HCC) 07/13/2024 8:30 AM CDT - 07/13/2024 9:10 AM CDT Surgery [facility] [address] [place] [address] Chris Motorcycle Racer, [address] [place] [address] CARDIOVERSION [id number] documented as of this encounter Procedures Procedure Name Priority Date/Time Associated Diagnosis Comments SCAN - LABS 11/08/2021 documented in this encounter Results * SCAN - LABS (11/08/2021) us Provider Scanning Final Result documented in this encounter Visit Diagnoses Not on filedocumented in this encounter Care Teams Procurement Buyer Relationship Specialty Start Date End Date Iza Phan DO PCP - General Family Medicine 02/11/20 documented as of this encounter
--- OUTSIDE RECORDS SUMMARY | 2024-06-11 09:20 | XMS_ITS | Encounter Summary ---
Author Organization [facility] [employer] [facility] Address [address] [place] [address] Phone Care Team Providers Care Sales Associate Cashier Name Role Phone Iza Phan DO Primary Care Provider +1- [phone] Encounter Details Date Type Department Care Team (Late st Contact Info) Description 06/08/2024 Results Follow-Up [facility] Cardiology [address] [facility] [address] [facility] [address] [facility] 8th [place] [address] [place] [address] Lam Lucio MD [address] [facility] [address] [place], [place] [id number] Social History Tobacco Use Types Packs/Day Years Used Date Smoking Tobacco: Former Smokeless Tobacco: Never Alcohol Use Standard Drinks/Week Comments Yes 0 (1 standard drink = 0.6 oz pur e alcohol) Comments No Sex and Gender Information Value Date Recorded Sex Assigned at Not on file Legal Sex Female 7:08 AM IMCU NURSE Gender Identity Female 05/16/2020 7:57 PM IMCU NURSE Sexual Orientation Straight 05/16/2020 7: 57 PM IMCU NURSE documented as of this encounter Ordered Prescriptions Prescription Sig Dispense Quantity Refills Last Filled Start Date End Date atenoloL (TENORMIN) 50 mg tablet Take 1 tablet (50 mg total) by mouth 2 (two) times a day 180 tablet 3 06/09/2024 documented in this encounter Plan of Treatment Upcoming Encounters Date Type Department Care Team (Latest Contact Info) Description 07/13/2024 8:30 AM CDT Hospital Encounter [facility] [address] [place] [address] Chris Final Inspector, [address] [place], [place] [id number] Paroxysmal atrial fibrillation (HCC) 07/13/2024 8:30 AM CDT - 07/13/2024 9:10 AM CDT Surgery [facility] [address] [place] [address] Chris Final InspectorMD [address] [place] [address] CARDIOVERSION [address] documented as of this encounter Visit Diagnoses Not on filedocumented in this encounter Discontinued Medications Medication Sig Discontinue Reason Start Date End Da te atenoloL (TENORMIN) 50 mg tablet Take 1 tablet (50 mg total) by mouth daily 06/08/2024 06/09/2024 atenoloL (TENORMIN) 50 mg tablet Take 1 tablet (50 mg total) by mouth every 2 (two) weeks 06/08/2024 06/09/2024 documented as of this encounter Care Teams Sales Associate Cashier Relationship Specialty Start Date End Date Iza Phan DO PCP - General Family Medicine 02/11/20 documented as of this encounter
--- OUTSIDE RECORDS SUMMARY | 2024-06-11 09:20 | XMS_ITS | Encounter Summary ---
Author Organization [facility] Address [address] [place] [address] Phone Care Team Providers Care Parole Officer Name Role Phone Iza Phan DO Primary Care Provider +1- [phone] Encounter Details Date Type Department Care Team (Late st Contact Info) Description 06/09/2024 Telephone [facility] Cardiology [address] [facility] 8th [place] [address] [place] [address] Lam Lucio MD [address] [facility] [address] [place] [address] Social History Tobacco Use Types Packs/Day Years Used Date Smoking Tobacco: Former Smokeless Tobacco: Never Alcohol Use Standard Drinks/Week Comments Yes 0 (1 standard drink = 0.6 oz pur e alcohol) Comments No Sex and Gender Information Value Date Recorded Sex Assigned at Not on file Legal Sex Female 7:08 AM MANAGER TALENT Gender Identity Female 05/16/2020 7:57 PM MANAGER TALENT Sexual Orientation Straight 05/16/2020 7: 57 PM MANAGER TALENT documented as of this encounter Miscellaneous Notes * Telephone Encounter - Yvonne Bishop RN - 06/09/2024 3:18 PM CDT Reminder set * Telephone Encounter - Mercedez Leon - 06/09/2024 3:04 PM CDT Spoke w/pt and she is aware to call [facility] to schedule Echo * Telephone Encounter - Mercedez Leon - 06/09/2024 3:03 PM CDT Images from the original note were not included. Per 06/09/24 Staff Msg Please assist [facility] Received: Today Yvonne Bishop, RN Sh[facility] Card Scheduling Pool Cc: Shashi Linda Im Card Scheduling Pool documented in this encounter Plan of Treatment Upcoming Encounters Date Type Department Care Team (Latest Contact Info) Description 07/13/2024 8:30 AM CDT Hospital Encounter [facility] Vascular [address] [address] Chris Supply ControllerMD [address] [place] [address] Paroxysmal atrial fibrillation (HCC) 07/13/2024 8:30 AM CDT - 07/13/2024 9:10 AM CDT Surgery [facility] Vascular [address] [address] Chris Supply ControllerMD [address] [place] [address] CARDIOVERSION [address] documented as of this encounter Visit Diagnoses Not on filedocumented in this encounter Care Teams Parole Officer Relationship Specialty Start Date End Date Iza Phan DO PCP - General Family Medicine 02/11/20 documented as of this encounter
--- OUTSIDE RECORDS SUMMARY | 2024-06-11 09:20 | XMS_ITS | Encounter Summary ---
Author Organization [facility] [employer] [facility] Address [address] [place] [address] Phone Care Team Providers Care Production Weigher Name Role Phone Iza Phan DO Primary Care Provider +1- [phone] Encounter Details Date Type Department Care Team [...] on file Legal Sex Female 7:08 AM CONCRETE POURER Gender Identity Female 05/16/2020 7:57 PM CONCRETE POURER Sexual Orientation Straight 05/16/2020 7: 57 PM CONCRETE POURER documented as of this encounter Plan of Treatment Upcoming Encounters Date Type Department Care Team (Latest Contact Info) Description 07/13/2024 8:30 AM CDT Hospital Encounter [facility] [address] [place] [address] Chris Trailer SteererMD [address] [place] [address] Paroxysmal atrial fibrillation (HCC) 07/13/2024 8:30 AM CDT - 07/13/2024 9:10 AM CDT Surgery [facility] [address] [place] [address] Sandie PerezTrailer Steerer, [address] [place] [address] CARDIOVERSION [address] documented as of this encounter Procedures Procedure Name Priority Date/Time Associated Diagnosis Comments SCAN - LABS 05/03/2020 documented in this encounter Results * SCAN - LABS (05/03/2020) us Provider Scanning Final Result documented in this encounter Visit Diagnoses Not on filedocumented in this encounter Care Teams Production Weigher Relationship Specialty Start Date End Date Iza Phan DO PCP - General Family Medicine 02/11/20 documented as of this encounter
--- OUTSIDE RECORDS SUMMARY | 2024-06-11 09:20 | XMS_ITS | Encounter Summary ---
Author Organization [facility] Address [address] [place] [address] Phone Care Team Providers Care Women'S Apparel Salesperson Name Role Phone Iza Phan DO Primary Care Provider +1- [phone] Encounter Details Date Type Department Care Team (Late st Contact Info) Description 06/08/2024 Telephone [facility] Cardiology [address] [facility] 8th [place] [address] [place] [address] Lam Lucio MD [address] [facility] [address] [place] [address] Social History Tobacco Use Types Packs/Day Years Used Date Smoking Tobacco: Former Smokeless Tobacco: Never Alcohol Use Standard Drinks/Week Comments Yes 0 (1 standard drink = 0.6 oz pur e alcohol) Comments No Sex and Gender Information Value Date Recorded Sex Assigned at Not on file Legal Sex Female 7:08 AM PATIENT CARE TECHNICIAN INSTRUCTOR Gender Identity Female 05/16/2020 7:57 PM PATIENT CARE TECHNICIAN INSTRUCTOR Sexual Orientation Straight 05/16/2020 7: 57 PM PATIENT CARE TECHNICIAN INSTRUCTOR documented as of this encounter Miscellaneous Notes * Telephone Encounter - Yvonne Bishop RN - 06/08/2024 10:20 AM CDT See related encounter. * Telephone Encounter - Nargis Karimi - 06/08/2024 10:16 AM CDT Khadijah Pt is returning call. documented in this encounter Plan of Treatment Upcoming Encounters Date Type Department Care Team (Latest Contact Info) Description 07/13/2024 8:30 AM CDT Hospital Encounter [facility] Vascular [address] [phone] Chris Planimeter OperatorMD [address] [place] [address] Paroxysmal atrial fibrillation (HCC) 07/13/2024 8:30 AM CDT - 07/13/2024 9:10 AM CDT Surgery [facility] Vascular [address] [phone] Sandie PerezPlanimeter OperatorMD [address] [place] [address] CARDIOVERSION [address] documented as of this encounter Visit Diagnoses Not on filedocumented in this encounter Care Teams Women'S Apparel Salesperson Relationship Specialty Start Date End Date Iza Phan DO PCP - General Family Medicine 02/11/20 documented as of this encounter
--- OUTSIDE RECORDS SUMMARY | 2024-06-11 09:20 | XMS_ITS | Encounter Summary ---
Author Organization [facility] Address [address] [facility] [place] [address] Care Team Providers Care Soft Top Installer Name Role Phone Unavailable Primary Care Provider Unavailabl e Encounter Details Date Type Department Care Team (Late st Contact Info) Description 06/18/2023 Lab Requisition [facility] - DermPath Lab [address] [facility] [place] [address] Ailyn Ortega DO [address] [facility] [address] [place] [address] Social History Tobacco Use Types Packs/Day Years [...] PM CDT) Case Report Dermatopathology Report Case: [id number] Authorizing Provider: Ailyn Ortega DO Collected: 06/18/2023 02:26 PM Ordering Location: [facility] - Received: 06/19/2023 12:37 PM DermPath Lab [...] characteristic determined by the Dermatopathology Laboratory at [facility], directed by Dr. Ha Reagan. These tests need not be, and therefore are not, approved by the [place] Food and Drug Administration. The tests are used for clinical purposes. Billing Codes Specimen Charges Stain Charges 79983 1 1:07 PM CDT DERMATOPATHOLOGY LABORATORY Embedded Images 1:07 PM CDT DERMATOPATHOLOGY LABORATORY Pathology/Cytolo gy TISSUE SPECIMEN FROM SKIN / Unknown 06/18/2023 2:26 PM CDT 06/19/2023 12:37 PM CDT Ailyn Ortega DO LAB - PATHOLOGY/C YTOLOGY ORDERABLES DERMATOPATHOLOGY LABORATORY [facility] - Department of Dermatology [address], [address] [phone] documented in this encounter Visit Diagnoses Not on filedocumented in this encounter
--- OUTSIDE RECORDS SUMMARY | 2024-06-11 09:20 | XMS_ITS | Referral Summary ---
Author Organization [facility] Address [address] [place] [address] Phone Care Team Providers Care Oracle Ebs Architect Name Role Phone Iza Phan DO Primary Care Provider [phone]- [phone] Encounters Date Type Department Care Team Description 06/11/2024 Telephone [facility] [address] [place] [address] Advanced Medicine 8th [place] [address] [place] [address] Lam Lucio MD Cardioversion 06/09/2024 Telephone [facility] [address] [place] [address] Advanced [facility] 8th [place] [address] [place] [address] Lam Lucio MD 06/08/2024 9:40 PM CDT Lab [facility] Advanced [facility] [address] [place] [phone] Paroxysmal atrial fibrillation (HCC) 06/08/2024 Results Follow-Up [facility] [address] [place] [address] 8th [place] [address] [place] [address] Lam Lucio MD 06/08/2024 4:00 PM CDT Office Visit [facility] [address] [place] [address] 8th [place] [address] [place] [address] Lam Lucio MD Paroxysmal atrial fibrillation (HCC) (Primary Dx); Essential hypertension; Hypercholesterolemia; Coronary artery calcification 06/08/2024 Telephone [facility] [address] [facility] Advanced Medicine 8th [place] [address] [place] [address] Lam Lucio MD 06/08/2024 Telephone [facility] [address] [facility] Advanced [facility] 8th [place] [address] [place] [address] Lam Lucio MD Hypertension from Last 3 Months Allergies Active Allergy Reactions Criticality Noted Date Comments Amlodipine Swelling Medium 07/11/2020 Codeine Nausea only,Vomiting Reaction: Nausea, Vomiting, Lisinopril Swelling Medium 07/11/2020 Medications hydroCHLOROthiaz tyler (MICROZIDE) 12.5 mg capsule TAKE 1 CAPSULE BY MOUTH DAILY 90 capsule 3 12/01/19 23 Active atorvastatin (LIPITOR) 20 mg tablet TAKE 1 TABLET BY MOUTH ONCE DAILY 90 tablet 3 09/25/19 24 Active ezetimibe (ZETIA) 10 mg tablet TAKE 1 TABLET BY MOUTH DAILY 90 tablet 3 09/25/19 24 Active calcium citrate-vitamin D3 200 mg-6.25 mcg (250 unit) tablet 1 tablet Active multivit with min-folic acid 200 mcg tablet,chewable Take by mouth Active cetirizine (ZyrTEC) 10 mg chewable tablet Take 1 tablet (10 mg total) by mouth daily Active apixaban (ELIQUIS) 5 mg tabletIndication s:atrial fibrillation Take 1 tablet (5 mg total) by mouth 2 (two) times a day 60 tablet 11 06/09/19 25 026 Active atenoloL (TENORMIN) 50 mg tablet Take 1 tablet (50 mg total) by mouth 2 (two) times a day 180 tablet 06/10/19 25 Active atenoloL (TENORMIN) 50 mg tablet TAKE 1 TABLET BY MOUTH DAILY 90 tablet 3 09/25/19 24 025 Discontinued(Re order) atenoloL (TENORMIN) 50 mg tablet Take 1 tablet (50 mg total) by mouth daily 90 tablet 06/09/19 25 025 Discontinued atenoloL (TENORMIN) 50 mg tablet Take 1 tablet (50 mg total) by mouth every 2 (two) weeks 180 tablet 3 03/ 025 Discontinued Active Problems Problem Noted Date Diagnosed Date Paroxysmal atrial fibrillation 06/08/2024 Aortic dilatation 11/14/2020 Essential hypertension 05/20/2020 Hypercholesterolemia [...] file Legal Sex Female 7:08 AM MANAGER COMMUNITY OUTREACH Gender Identity Female 05/16/2020 7:57 PM MANAGER COMMUNITY OUTREACH Sexual Orientation Straight 05/16/2020 7: 57 PM MANAGER COMMUNITY OUTREACH Last Filed Vital Signs Vital Sign Reading Time Taken Comments Blood Pressure 148/99 06/08/2024 4:28 PM CDT Pulse 91 06/08/2024 4:28 PM CDT Temperature 36.3 C (97.4 F) 05/20/2020 8:57 AM MANAGER COMMUNITY OUTREACH Respiratory Rate - - Oxygen Saturation 98% 06/08/2024 4:28 PM CDT Inhaled Oxygen Concentration - - Weight 79 kg (174 lb 3.2 oz) 06/08/2024 4:28 PM CDT Height 165.1 cm (5' 5 ) 06/08/2024 4:28 PM CDT Body Mass Index 28.99 06/08/2024 4:28 PM CDT Plan of Treatment Upcoming Encounters Date Type Department Care Team (Latest Contact Info) Description 07/13/2024 8:30 AM CDT Hospital Encounter [facility] [address] [place] [phone] Sandie PerezDerrick BuilderMD [address] [place] [address] Paroxysmal atrial fibrillation (HCC) 07/13/2024 8:30 AM CDT - 07/13/2024 9:10 AM CDT Surgery [facility] [address] [place] [phone] Sandie PerezDerrick BuilderMD [address] [place] [address] [facility] [id number] Procedures Procedure Name Priority Date/Time Associated Diagnosis Comments EGFR Routine 06/08/2024 6:00 PM CDT Paroxysmal atrial fibrillation (HCC) TSH Routine 06/08/2024 6:00 PM CDT Paroxysmal atrial fibrillation (HCC) BASIC METABOLIC PANEL Routine 06/08/2024 6:00 PM CDT Paroxysmal atrial fibrillation (HCC) ECG 12-LEAD Routine 06/08/2024 4:31 PM CDT Paroxysmal atrial fibrillation (HCC) THINPREP IMAGING PAP AND HPV MRNA E6/E7 REFLEX HPV 16,18/45 Routine 10/15/2013 12:00 AM CDT from Last 3 Months or Most Recently Relevant to Health Maintenance Results * eGFR (06/08/2024 6:00 PM CDT) eGFR 70 >=60 mL/min/1. 73 m2 Comment: Interpretive Data Reference Interval Normal >/= 90 mL/min/1.73m2 Mildly decreased* 60 - 89 mL/min/1.73m2 Mildly to moderately decreased 45 - 59 mL/min/1.73m2 Moderately to severely decreased 30 - 44 mL/min/1.73m2 Severely decreased 15 - 29 mL/min/1.73m2 Kidney Failure < 15 mL/min/1.73m2 *Relative to young adult level Estimated glomerular filtration rate is determined by the 2020 CKD-EPI equation recommended by the National Kidney Foundation (A Unifying Approach to GFR Estimation: Recommendations of the NKF-ASK Task Force on Reassessing the Inclusion of Race in Diagnosing Kidney Disease, JASN 202). The CKD-EPI equation should not be used for patients with unstable renal function and has not been validated in children and those over 70. Current interpretive data was last reviewed 2021. Blood 06/08/2024 6:00 PM CDT 06/08/2024 6:11 PM CDT us Lam Jared Khadijah MD LAB BLOOD ORDERABLES F inal Result Performing Organization Address City/[facility]/ZIP Co de Phone Number [facility] [place] [address] * (ABNORMAL) TSH (06/08/2024 6:00 PM CDT) Pathologist [facility] Thyroid Stimulating Hormone 4.73(H) 0.30 - 4.20 mcIUnit/mL Blood 06/08/2024 6:00 PM CDT 06/08/2024 6:09 PM CDT Lam Lucio MD LAB BLOOD ORDERABLES F inal Result Performing Organization Address [facility] Co de Phone Number [facility] [place] [address] * (ABNORMAL) Basic metabolic panel (06/08/2024 6:00 PM CDT) [facility] Sodium 141 135 - 145 mmol/L Potassium, pl 4.1 3.3 - 4.9 mmol/L [facility] Chloride 100 97 - 110 mmol/L [facility] CO2 29 22 - 32 mmol/L [facility] Anion gap 12 2 - 15 mmol/L [facility] BUN 18 6 - 25 mg/dL [facility] Creatinine 0.91 0.60 - 1.10 mg/dL [facility] Glucose 100 70 - 199 mg/dL [facility] Comment: Interpretive Data Fasting glucose >/= 126 mg/dl is diagnostic for diabetes. Fasting is defined as no caloric intake for at least 8 hours. Fasting glucose between 100 mg/dl to 125 mg/dl is diagnostic of prediabetes. In a patient with classic symptoms of hyperglycemia or hyperglycemic crisis, a random glucose >/= 200 mg/dl is diagnostic for diabetes. In the absence of unequivocal hyperglycemia, results should be confirmed by repeat testing. The classification and Diagnosis of Diabetes Diabetes Care 2021; 46: S19-S40. Current interpretive data was last revised 2022. Calcium 10.6(H) 8.5 - 10.3 mg/dL [facility] Blood 06/08/2024 6:00 PM CDT 06/08/2024 6:09 PM CDT Lam Lucio MD LAB BLOOD ORDERABLES F inal Result Performing Organization Address [facility] Co de Phone Number [facility] [place] [address] * ECG 12 lead (06/08/2024 4:31 PM CDT) Lam Lucio MD ECG ORDERABLES Edited Result - Final * [facility] Pap and HPV mRNA E6/E7 Reflex HPV 16,18/45 (10/15/2013 12:00 AM CDT) Human papillomavirus RNA, High Risk E6/E7 Not Detected Not Detected [facility] Comment: This test was performed using the APTIMA HPV Assay ([employer] This assay detects E6/E7 viral messenger RNA (mRNA) from 14 high-risk HPV types (16,18,31,33,35,39,45,51,52,56,58,59,66,68). Test performed at [facility] [address] [address] Director: ERINN KAY MD 10/15/2013 Rosales Jordan MD LAB CYTOLOGY ORDERABLES Final Re sult Performing Organization Address City/[facility] Co de Phone Number [facility] from Last 3 Months or Most Recently Relevant to Health Maintenance Insurance [facility] CHOICE PLUS [facility] HMO/PPO Address: [id number] [place] [address] [facility] H[facility]/PPO Address: [id number] [place] [id number] [facility] CHOICE PLUS [facility] HMO/PPO Address: [address] [place] [address] [facility] CHOICE PLUS [facility] HMO/PPO Address: [address] [address] [place] [address] [facility] MEDICARE ADVANTAGE [facility] MEDICARE Address: [address] [address] [place] [address] Care Teams Oracle Ebs Architect Relationship Specialty Start Date End Date Iza Phan DO PCP - General Family Medicine 02/11/20
--- OUTSIDE RECORDS SUMMARY | 2024-06-11 09:20 | XMS_ITS | Continuity of Care Document ---
Author Organization [facility] Address [address] [place] [address] Phone Care Team Providers Care Nutrition Worker Name Role Phone Minnie Blackburn MD Unavailable [...] Providers Copied on Encounter OFFICE/OUTPAT IENT VISIT, [facility], [address] [place] [address], [facility], tel: [phone] Rawson SORE THROAT (chief complaint) Pain in throatOther acute sinusitis 3 Blackburn Minnie. [address] [place] [address], [facility], . tel: [phone] OFFICE/OUTPAT IENT VISIT, [facility], [address] [place] [address], [facility], [place] tel: [phone] Rawson UTI (chief complaint) DysuriaUrinary frequencyAcute cystitis with hematuria 3 Aren Mathews. [address] [place] [address], [facility], [place]. tel: [phone] OFFICE/OUTPAT IENT VISIT, [facility] [address] [facility], [address] [place] [address], [facility], tel: [phone] Rawson Sinus symptoms (acute) (chief complaint) Acute maxillary sinusitis, unspecified 6-202 0 Trung Kiara. [address] [place] [address], [facility], . tel: [phone] OFFICE/OUTPAT IENT VISIT, [facility] [address], [address] [place] [address], [facility], tel: [phone] Rawson Sinus symptoms (acute) (chief complaint) Acute maxillary sinusitis, unspecified 201 9 Blackburn Gulam. [address] [place] [address], [facility], . tel: [phone] OFFICE/OUTPAT IENT VISIT, [facility], [address] [place] [address], [facility], [place] tel: [phone] Rawson Sinus symptoms (acute) (chief complaint) Acute sinus infection 3-201 5 Trung Kiara. [address] [place] [address], [facility], . tel: [phone] OFFICE/OUTPAT IENT VISIT, [facility], [address] [place] [address], [address], tel:[phone] Rawson Sinus symptoms (acute) (chief complaint) Acute sinus infection 4 Malcom Beaver. [address] [place] [address], [address], . tel: [phone] Family History Family Member Type Diagnosis Age At Onset Mother Problem (finding) malignant neoplasm of o vary Father Problem (finding) alzheimer's disease Father Problem (finding) Heart disease Payers Payer name Insurance type Covered libertarian ID Authoriza tion(s) No Information Social History [...] And Reason For Visit From encounter dated '02/25/2023 10:30'. SORE THROAT (chief complaint). Description: Onset: 2 Days. The severity of the problem is moderate.The problem has worsened. Symptoms are associated with exposure to strep. Associated symptoms include cough, fatigue, nasal congestion, pharyngitis and postnasal drainage. Pertinent negatives includechills/rigors, dyspnea, facial pain, fever, headache, hemoptysis, myalgia, otalgia, rash, rhinitis,sinus pressure, sputum, tooth pain or wheezing. Additional information: COVID POSITIVE ON THANKS. Reason For Referral Reason For Referral No Information Plan Of Treatment Date Type Action Status Goal CT-Colonography. Due on due Goal FIT-DNA. Due on due Goal Sigmoidoscopy. Due on due Goal Influenza vaccine. Due on due Goal FIT. Due on due Goal Colonoscopy. Due on due Goal Zoster vaccine (). Due on due Goal Td vaccine. Due on due Goal Tdap. Due on due Goal Hepatitis C screening. Due o n due Goal Zoster vaccine. Due on due Goal Unhealthy drug u se screening. Due on due Goal Pap/HPV testing. Due on due Goal Lipid panel. Due on due Goal Mammogram. Due on due Goal Depression screening. Due on due Goal FOBT. Due on due Goal HPV. Due on due Goal Tobacco cessation counseling [...] Zoster vaccine (). Due on due Goal Depression screening. Due on due Goal Pap/HPV testing. Due on due Goal FOBT. Due on due Goal Influenza vaccine. Due on due Goal Zoster vaccine. Due on due Goal Colonoscopy. Due on 020 due Goal Lipid panel. Due on 020 due Goal Mammogram. Due on 0 due Goal Td vaccine. Due on 20 due Goal Tdap. Due on due Goal Sigmoidoscopy. Due on due Patient Education Urinary Tract [...] ibed. Related to Acute maxillary sinusitis, unspecified Mucinex DM + Sudafed for sinus relief, mucous, and cough Related to Acute maxillary sinusitis, unspecified Increase fluids. Rest. Related t o Acute maxillary sinusitis, unspecified Sinus rinses Related to Acute maxillary sinusitis, unspecified FINISH ANTIBIOTICS- DIRECTED R elated to Acute maxillary sinusitis, unspecified Finish all antibiotics as prescr ibed. Related to Acute sinus infection Patient instructed o n use of saline sprays. Related to Acute sinus infection Increase fluids. Related to Acut e sinus infection Instructions given f or sinus irrigation. Related to Acute sinus infection Patient instructed o n use of saline sprays. Related to Acute sinus infection antibiotics as discussed Related to Acute sinus infection continue using mucinex Related t o Acute sinus infection RTC if symptoms not better in 1 week Related to Acute sinus infection Assessments Type Assessment Date assessment Pain in throat assessment Other acute sinusitis Mental Status Date Cognitive Assessment Orientation - Harrison ed to time, place, person, situation. Patient Care Teams Name Effective Dates (start - stop) Status Members No Information
--- OUTSIDE RECORDS SUMMARY | 2024-06-11 09:20 | XMS_ITS | Encounter Summary ---
Author Organization [facility] Address [address] [place] [address] Phone Care Team Providers Care Ecmo Specialist Name Role Phone Iza Phan DO Primary Care Provider [phone] Reason for Visit * Reason Onset Date Comments Cardioversion 06/11/2024 Encounter Details Date Type Department Care Team (Late st Contact Info) Description 06/11/2024 Telephone [facility] [address] [facility] Advanced Medicine 8th [place] [address] [place] [address] Lam Lucio MD [address] [address] Cardioversion Social History Tobacco Use Types Packs/Day Years Used Date Smoking Tobacco: Former Smokeless Tobacco: Never Alcohol Use Standard Drinks/Week Comments Yes 0 (1 standard drink = 0.6 oz pur e alcohol) Comments No Sex and Gender Information Value Date Recorded Sex Assigned at Not on file Legal Sex Female 7:08 AM PREFITTER Gender Identity Female 05/16/2020 7:57 PM PREFITTER Sexual Orientation Straight 05/16/2020 7: 57 PM PREFITTER documented as of this encounter Miscellaneous Notes * Telephone Encounter - Keri Allred RN - 06/11/2024 8:16 AM CDT See pt portal Vo Dr Renea Lucio /BstehmNRN 1.CV in 4 weeks Per [facility] can offer any date in July arrival time 6 or 7 AM Pt offered and confirmed July 13 -07 arrival aware NPO after MN except meds and will require a paratransit driver Directions to CLIENT CUSTOMER MANAGER given - with no additional questions voiced Pt confirmed she started Eliquis on June 09 in the PM-advised to stay consistent in Eliquis dosing and let us know if she misses any doses -Understanding verbalized documented in this encounter Plan of Treatment Upcoming Encounters Date Type Department Care Team (Latest Contact Info) Description 07/13/2024 8:30 AM CDT Hospital Encounter [facility] Vascular [address] [phone] Chris Information Technology AnalystMD [address] [place] [address] Paroxysmal atrial fibrillation (HCC) 07/13/2024 8:30 AM CDT - 07/13/2024 9:10 AM CDT Surgery [address] [phone] Sandie PerezInformation Technology AnalystMD [address] [place] [address] CARD[facility]ERSION [address] documented as of this encounter Visit Diagnoses Diagnosis Paroxysmal atrial fibrillation (HCC)- Primary Atrial fibrillation Paroxysmal atrial fibrillation (HCC)- Primary Atrial fibrillation Paroxysmal atrial fibrillation (HCC) Atrial fibrillation documented in this encounter Orders Case Request Count Last Ordered Date First Orde red Date CASE REQUEST POSSUM TRAPPER 1 06/11/2024 documented in this encounter Care Teams Ecmo Specialist Relationship Specialty Start Date End Date Iza Phan DO PCP - General Family Medicine 02/11/20 documented as of this encounter
--- OUTSIDE RECORDS SUMMARY | 2024-06-11 09:20 | XMS_ITS | Continuity of Care Document ---
Author Organization [facility] Address [address] [facility] [address] [place] [phone] Phone Care Team Providers Care Business Support Professional Name Role Phone Matthew Estevez MD, FACS Unavailable Unavailab le Allergies, Adverse Reactions, Alerts Substance Reaction Status Criticality lisinopril Active No Information codeine Active No Information Medications Medication Instructions Dosage Effective Dates (start - stop) Status Comments hydrochlorothiazide 12.5 mg tablet take 1 tablet by oral route every day 12.5 MG - Active ezetimibe 10 mg tablet take 1 tablet by oral route every day 10 MG - Active Multivitamin Women 50 Plus 8 mg iron-400 mcg-300 mcg tablet take 1 capsule by oral route every morning for 1 month 1 capsule - Active atenolol 50 mg tablet take 1 tablet by oral route every day 50 MG - Active Vitamin D3 125 mcg (5,000 unit) tablet take one tablet daily - Active atorvastatin 20 mg tablet take 1 tablet by oral route every day 20 MG - Active Procedures Procedure Date Visual Field [...] Diagnoses Date Provider Providers Copied on Encounter [facility], [address], [place], [place], [id number], tel:[phone] [place] No Information 5 Zenaida Castro. [address], [address], [place], [place], [id number], [place]. tel:[phone] [facility], [address], [place], [place], [id number], tel:[phone] SEC Deep DYE Professional Complete Exam (chief complaint) Age-related nuclear cataract, bilateralOcul ar hypertension, bilateralChal azion left upper eyelid 4 Urvashi OD Nadia. [facility], [address], [place], [place], [id number], [place]. tel:[phone] Referring Provider: Matthew Meier, [address], [place], [address] . tel:[phone] Office/outpa tient Visit, Est [facility], [address], [place], [place], [id number], [place] tel:[phone] SEC Deep [place] Professional 6 month followup (chief complaint) Ocular hypertension, bilateral - 3 Urvashi OD Nadia. [facility], [address], [place], [place], [id number], [place]. tel:[phone] Referring Provider: Matthew Meier, [address], [place], [address] . tel:[phone] Office/outpa tient Visit, [facility], [address] [place] [address] [address], [place], [place], [id number], tel:[phone] SEC [place] Professiona l Complete exam (chief complaint) Other age-related incipient cataract, bilateralOcul ar hypertension, bilateral Oct-0 4-202 2 Urvashi OD Nadia. [address] [place] [address] [employer], [address], [place], [place], [id number], [place]. tel:[phone] Referring Provider: Matthew Meier, [address] [place] [address] [facility] [address], [place], [address] . tel:[phone] Office/outpa tient Visit, [facility], [address] [place] [address] [address], [place], [place], [address], tel:[phone] [place] IOP check (chief complaint) Ocular hypertension, bilateralOthe r age-related incipient cataract, bilateral Apr-03 13- 2 Zenaida Castro. [address] [place] [address] [facility], [address], [place], [place], [id number], . tel:[phone] Referring Provider: Matthew Meier, [address] [place] [address] [facility] [address], [place], [address] . tel:[phone] Office/outpa tient Visit, [facility], [address] [place] [address] [address], [place], [place], [id number], tel:[phone] SEC [place] IOP Check (chief complaint) Ocular hypertension, bilateral Dec- 1 Zenaida Castro. [address] [place] [address] [facility], [address], [place], [place], [id number], . tel:[phone] Referring Provider: Matthew Meier, [address] [place] [address] [facility] [address], [place], [address] . tel:[phone] Office/outpa tient Visit, [facility], [address], [place], [place], [address], tel:[phone] SEC Deep DYE Professional 6-8 wk IOP check (chief complaint) Ocular hypertension, bilateral 1 Zenaida Castro. [address] [facility], [address], [place], [place], [address], . tel:[phone] Referring Provider: Matthew Meier, [address], [place], [address] . tel:[phone] Office/outpa tient Visit, [facility], [address], [place], [place], [address], tel:[phone] SEC Deep DYE Professional Complete Exam (chief complaint) Ocular hypertension, bilateralOthe r age-related incipient cataract, bilateral 1 Zenaida Castro. [facility], [address], [place], [place], [address], [place]. tel:[phone] Referring Provider: Matthew Meier, [facility] [address], [place], [address] . tel:[phone] [facility], [address], [place], [place], [address], tel:[phone] SEC Deep DYE Professional No Information 1 No Information Family History Family Member Type Diagnosis Age At Onset Sister Problem glaucoma Mother Problem glaucoma Payers Payer name Insurance type Covered alliance party ID Authoriza tion(s) No Information Social [...]
--- OUTSIDE RECORDS SUMMARY | 2024-06-11 09:20 | XMS_ITS | Clinical Summary ---
Author Organization [facility] Address [address] [place] [address] Phone Care Team Providers Care Commercial Agent Name Role Phone Iza Phan DO Primary Care Provider [phone] Allergies Active Allergy Reactions Criticality Noted Date [...] (two) times a day 180 tablet 3 06/10/19 25 Active atenoloL (TENORMIN) 50 mg tablet TAKE 1 TABLET BY MOUTH DAILY 90 tablet 3 09/25/19 24 025 Discontinued(Re order) atenoloL (TENORMIN) 50 mg tablet Take 1 tablet (50 mg total) by mouth daily 90 tablet 3 06/09/19 25 025 Discontinued atenoloL (TENORMIN) 50 mg tablet Take 1 tablet (50 mg total) by mouth every 2 (two) weeks 180 tablet 3 06/09/19 25 025 Discontinued Active Problems Problem Noted Date Diagnosed Date Paroxysmal atrial fibrillation 06/08/2024 Aortic dilatation 11/14/2020 Essential hypertension 05/20/2020 Hypercholesterolemia 05/20/2020 Coronary artery calcification 05/20/2020 Resolved Problems Problem Noted Date Diagnosed Date Resolved Date Thoracic aortic aneurysm 05/18/2020 Encounters Date Type Department Care Team Description 06/11/[address] [facility] Cardiology [address] [place] [address] Medicine 8th [place] [address] [place] [address] Lam Lucio MD Cardioversion 06/09/[address] [facility] Cardiology [address] [place] [address] 8th [place] [address] [place] [address] Lam Lucio MD 06/08/2024 9:40 PM CDT Lab [facility] ([facility]) [address] [place] [phone] Paroxysmal atrial fibrillation (HCC) 06/08/2024 4:00 PM CDT Office Visit [facility] Cardiology [address] [place] [place] [address] 8th [place] [address] [place] [address] Lam Lucio MD Paroxysmal atrial fibrillation (HCC) (Primary Dx); Essential hypertension; Hypercholesterolemia; Coronary artery calcification 06/08/2024 Results Follow-Up [facility] Cardiology [address] [place] [place] [address] 8th [place] [address] [place] [address] Lam Lucio MD 06/08/[address] [facility] Cardiology [address] [place] [address] 8th [place] [address] [place] [phone] Lam Lucio MD 06/08/[address] [facility] Cardiology [address] [place] [address] Advanced Medicine 8th [place] [address] [place] [phone] Lam Lucio MD Hypertension from Last 3 Months Family History Medical History Relation Name Comments [...] on file Legal Sex Female 7:08 AM FITTING ROOM ASSOCIATE Gender Identity Female 05/16/2020 7:57 PM FITTING ROOM ASSOCIATE Sexual Orientation Straight 05/16/2020 7: 57 PM FITTING ROOM ASSOCIATE Obstetrics History Last Filed Vital Signs Vital Sign Reading Time Taken Comments Blood Pressure 148/99 06/08/2024 4:28 PM CDT Pulse 91 06/08/2024 4:28 PM CDT Temperature 36.3 C (97.4 F) 05/20/2020 8:57 AM FITTING ROOM ASSOCIATE Respiratory Rate - - Oxygen Saturation 98% [...] Description 07/13/2024 8:30 AM CDT Hospital Encounter [facility] [address] [place] [phone] Chris Soil TechnologistMD [address] [place] [phone] Paroxysmal atrial fibrillation (HCC) 07/13/2024 8:30 AM CDT - 07/13/2024 9:10 AM CDT Surgery [facility] [address] [place] [address] Chris, Soil Technologist, [address] [place] [phone] CARDIOVERSION [id number] Health Maintenance Due Date Last Done Comments Breast Cancer Screening-Mammogram 1959 Colon Cancer Screening-Colonoscopy 1959 Depression Screening 1959 Fall Risk Assessment 1959 Hepatitis C Screening 1959 Osteoporosis Screening-Bone Density Scan 1959 DTaP/Tdap/Td Vaccine (1 - Tdap) 1970 Hepatitis B Screening 1977 Pneumococcal vaccine 65+ (1 of 1 - PCV) 2009 Cervical Cancer Screening 10/15/20142013, 10/15/2013, 09/30/2012, Additional history exists Zoster Vaccine (2 of 2) 01/01/2020 11/06/2019 Well Visit 65+ 2024 10/02/2016 Influenza Vaccine (Season Ended) 2024 11/06/2019, 12/25/2018, 02/24/2018 Procedures Procedure Name Priority Date/Time Associated Diagnosis [...] of Race in Diagnosing Kidney Disease, JASN 2020). The CKD-EPI equation should not be used for patients with unstable renal function and has not been validated in children and those over 70. Current interpretive data was last reviewed 2021. Blood 06/08/2024 6:00 PM CDT 06/08/2024 6:11 PM CDT Lam Lucio MD LAB BLOOD ORDERABLES F inal Result Performing Organization Address City/[facility] Co de Phone Number [facility] Department of [address] [place], [place] [phone] * (ABNORMAL) TSH (06/08/2024 6:00 PM CDT) Thyroid Stimulating Hormone 4.73(H) 0.30 - 4.20 mcIUnit/mL Blood 06/08/2024 6:00 PM CDT 06/08/2024 6:09 PM CDT Lam Lucio MD LAB BLOOD ORDERABLES F inal Result [facility] [place] [address] * (ABNORMAL) Basic metabolic panel (06/08/2024 6:00 PM CDT) Sodium 141 135 - 145 mmol/L Potassium, pl 4.1 3.3 - 4.9 mmol/L [facility] Chloride 100 97 - 110 mmol/L [facility] CO2 29 22 - 32 mmol/L [facility] Anion gap 12 2 - 15 mmol/L [facility] BUN 18 6 - 25 mg/dL [facility] Creatinine 0.91 0.60 - 1.10 mg/dL [facility] Glucose 100 70 - 199 mg/dL [facility] Comment: Interpretive Data Fasting glucose >/= 126 [...] classification and Diagnosis of Diabetes Diabetes Care 202; 46: S19-S40. Current interpretive data was last revised 2022. Calcium 10.6(H) 8.5 - 10.3 mg/dL [facility] Blood 06/08/2024 6:00 PM CDT 06/08/2024 6:09 PM CDT Lam Lucio MD LAB BLOOD ORDERABLES F inal Result [facility] [place] [address] * ECG 12 lead (06/08/2024 4:31 PM CDT) Lam Lucio MD ECG ORDERABLES Edited Result - Final * [facility] Pap and HPV mRNA E6/E7 Reflex HPV 16,18/45 (10/15/2013 12:00 AM CDT) Human papillomavirus RNA, High Risk E6/E7 Not Detected Not Detected [facility] Comment: This test was performed using the APTIMA HPV Assay ([employer] This assay detects E6/E7 viral messenger RNA (mRNA) from 14 high-risk HPV types (16,18,31,33,35,39,45,51,52,56,58,59,66,68). Test performed at [facility] [address] Director: ERINN KAY MD 10/15/2013 us Rosales Jordan MD LAB CYTOLOGY ORDERABLES Final Re sult [facility] from Last 3 Months or Most Recently Relevant to Health Maintenance Insurance [facility] CHOICE PLUS [facility] CHOICE PLUS CHOICE PLUS MEDICARE ADVANTAGE Care Teams Commercial Agent Relationship Specialty Start Date End Date Iza Phan DO PCP - General Family Medicine 02/11/20
[2024-07-06 11:39] VITALS: BMI 27.9
--- NOTE | 2024-07-06 11:39 | WPDHOMESLEEP ---
Sleep Study - Home Unattended Date of Study: 06/11/24 Ordering Provider: Iza Phan DO Interpreting Provider: Mima Terrazas DO Home Sleep Study Type: Watch PAT Height: 1.65 m Weight: 76.204 kg Body Mass Index: 27.9 Neck Circumference (inches): 13.25 [place]: 4 Reason for Sleep Study Trouble maintaining sleep, interruptions in breathing while asleep Sleep History The patient is a 64-year-old female that had a sleep study ordered her primary care physician for evaluation of sleep apnea. The patient admits to interruptions in breathing while asleep, trouble maintaining sleep and unwanted behaviors during sleep. The patient does snore loudly. She denies choking or gasping at night. She denies having trouble breathing on her back. She denies morning headaches. She does have a dry or sore mouth / throat in the morning. She denies nocturnal heartburn. She denies nocturia. She denies having difficulty falling asleep. She does have difficulty returning to sleep if she wakes up throughout the night. She denies hypnotic or sedative use. She denies feeling anxious about sleep. She does feel tired or sleepy during the day. She does feel tired in the morning. She denies having the urge to fall asleep during the day. She denies feeling drowsy while driving. She denies sleep paralysis, cataplexy and hypnagogic/ hypnopompic hallucinations. She denies clenching or grinding her teeth. She denies kicking or jerking her legs excessively. She denies having a restless feeling in her legs. She goes to bed at 10:00 p.m. every night. It takes her 15 minutes to fall asleep. She gets 5 hours of sleep per night. Her sleep is not restorative on her days off. She denies taking any planned naps. She denies dream enactment behavior. She denies sleep walking as an adult. She denies consuming any caffeinated beverages daily. She denies tobacco use. She consumes 2 alcoholic beverages 3-4 nights per week. She exercises 3-4 nights per week. [facility] Past Medical History Medical History Colon cancer screening Thoracic aortic aneurysm Hyperlipidemia Essential (primary) hypertension Family History Family History Father Hypertension Family history of elevated blood lipids Acute myocardial infarction Family history of coronary artery disease Sibling Family history of aortic aneurysm Mother Family history of malignant neoplasm of breast in first degree relative Family history of malignant neoplasm of ovary Social History Social History Smoking packs per day: 1 Smoking cigarettes per day: 20.0 Years smoked: 30 Smoking pack-years: 30.00 Smoking status: Former smoker Tobacco type: cigarettes Alcohol intake: current Drinks per week: 7 Alcohol use details: 2-3 drinks, 2-3 times weekly Substance use: never Substance use type: does not use Living arrangements: with family Additional living arrangements comments: lives with spouse Spiritual care concerns: No Medications Home Medications ?Medication ?Instructions ?Recorded ?Confirmed ?Type atorvastatin 20 mg tablet 20 mg PO DAILY #90 tabs 11/19/21 06/30/24 Rx ezetimibe 10 mg tablet 10 mg PO DAILY #90 tabs 11/19/21 06/30/24 Rx calcium ER 600 mg (as carb,cit)-D3 tablet PO 11/30/21 06/30/24 History 12.5 mcg (500 unit) tablet, ext.rel (Citracal-D3 Slow Release) pqnsobgd-ctt-kjaey acid 0.4 1 tablet PO DAILY 11/30/21 06/30/24 History mg-lycopene 300 mcg-lutein 250 mcg tablet (Centrum Silver) cetirizine 10 mg capsule (Zyrtec) 10 mg PO DAILY PRN 10/04/23 06/30/24 History levothyroxine 25 mcg tablet 25 mcg PO DAILY #90 tabs 04/07/24 06/30/24 Rx hydrochlorothiazide 12.5 mg tablet See Rx Instructions .Route 06/16/24 06/30/24 Rx .COMPLEX #90 tabs apixaban 5 mg tablet (Eliquis) 5 mg PO BID 06/30/24 06/30/24 History atenolol 50 mg tablet 50 mg PO BID 06/30/24 06/30/24 History epinephrine 0.3 mg/0.3 mL 0.3 mg (0.3 mL) IM ONCE #2 ea 06/30/24 06/30/24 Rx injection, auto-injector Sleep Procedure The sleep study was completed using [employer] a technically adequate device with seven channels: peripheral arterial tone, actigraphy, body position, snore, respiratory movement, pulse oximetry, sleep staging, and heart rate. Prior to using the device, the patient received verbal and written instructions for its application and was provided with the help desk phone number for additional telephonic instruction with 24-hour availability of qualified personnel to answer questions. The study was scored using CMS guidelines. Sleep Architecture The total recording time is 8 hrs, 14 min. The total sleep time is 7 hrs, 40 min. Sleep latency is 19 minutes. REM latency is 76 minutes. The patient had 4 episodes of waking. Sleep architecture shows 4.9% deep sleep, 79.3% light sleep, and (as % Total Sleep Time) showed NREM (Light 79.3%; Deep 4.9%), and a 15.9% stage REM. The patient spent 0.0% of total sleep time in the supine position. Sleep efficiency was 93.12. Respiratory Analysis The overall AHI (pAHI 4%:) is 2.8. The overall AHI (pAHI 3%:) is 12.7. The central AHI is 0.7. The AHI was 11.3 in NREM and 19.9 in REM sleep. The AHI was N/A in Supine and 12.7 in Non-supine sleep. Percent of Jesus Figueredo respirations is 0.0. Oximetry Data The oxygen desaturation index (CHLOÉ 4%:) is 2.1. The mean saturation is 95%, and the lowest saturation is 84%. Time spent with saturation < 88% is 0.1 minutes. Snoring Profile Snoring average intensity is 41 dB. The patient snored above 45 decibels for 22.5 minutes, 4.9% of sleep time. Cardiac Profile The average pulse rate is 77 beats per minutes. The lowest pulse rate is 57 bpm. The highest pulse rate reported is 101 bpm. Suspected Afib total duration is 7:35:29, (h:m:sec). The longest Afibevent duration is 2:15:42. Premature beats occur 3.5 per minute. Assessment and Plan Assessment and Plan (1) Sleep disturbances: Code(s): G47.9 - Sleep disorder, unspecified Status: Acute Assessment and Plan: The patient had an overall AHI of 2.8 with desaturation down to 84%. This is not consistent with sleep disordered breathing. If there is further concern for a sleep disorder, I recommend the patient have a split study with the use of a hypnotic. Data The data obtained during this sleep study is adequate for interpretation. Certification This sleep study has been reviewed by a board certified sleep medicine physician.
== END 2024-06-12 11:36 | disposition home or self-care (01) ==
LOC: ANHCSM 09:10
PROVIDERS: PCP Family Medicine; Visit Provider Family Medicine
DX: G47.10 Hypersomnia, unspecified (principal); G47.9 Sleep disorder, unspecified
CPT/HCPCS: 95800